=== PATIENT | female | born 1950 | race Caucasian/White ===

== ENCOUNTER → 2020-03-31 | Outpatient (CLI) | payer MEDICARE ==
--- NOTE | 2020-04-02 08:53 | RAD ---
DATE: 03/31/2020 9:01 AM EXAM: MAMMO MATTHEW SCREENING BILATERAL HISTORY: 03/25/2019, 03/19/2018 COMPARISON: Bilateral CC and MLO views of the breasts were performed. Bilateral breast tomosynthesis was performed in CC and MLO projections. This study was interpreted with the benefit of Computerized Aided Detection (CAD). FINDINGS: Breast Density: SCATTERED The breast parenchyma shows scattered fibroglandular densities. Breast parenchyma level B No suspicious masses, microcalcifications or architectural distortion is present to suggest malignancy in either breast. The visualized axillae are unremarkable. IMPRESSION: No mammographic evidence of malignancy. BI-RADS CATEGORY: 1 NEGATIVE RECOMMENDED FOLLOW-UP: 12M 12 MONTH FOLLOW-UP Annual screening mammography is recommended, unless clinically indicated sooner based on symptoms or change in physical exam. PQRS compliance statement: Patient information was entered into a reminder system with a target due date for the next mammogram. Mammography is a sensitive method for finding small breast cancers, but it does not detect them all and is not a substitute for careful clinical examination. A negative mammogram does not negate a clinically suspicious finding and should not result in delay in biopsying a clinically suspicious abnormality. "Our facility is accredited by the [employer] Mammography Program."
== END ==
LOC: MAMMO 08:39
PROVIDERS: ATTEND Family Medicine
DX: Z12.31 Encounter for screening mammogram for malignant neoplasm of breast (principal)
CPT/HCPCS: 77063; 77067

== ENCOUNTER → 2020-11-12 | Outpatient (CLI) | payer MEDICARE ==
--- NOTE | 2020-11-12 11:13 | RAD ---
EXAM: Neck sonogram. HISTORY: Thyroid cancer. Thyroidectomy. TECHNIQUE: Sonographic imaging of the neck was performed. COMPARISON: None. FINDINGS: No residual thyroid parenchyma is seen. There is no lesion within the thyroid resection bed . There is a lymph node with thickened cortex and absent fatty hilum within the left cervical chain m easuring 6.5 mm in maximum dimension. This is nonspecific and may be reactive in etiology. No additio nal lymph node with suspicious morphology is seen. IMPRESSION: 1. Thyroidectomy. No residual thyroid parenchymal lesion is seen within the thyroid resection bed. 2. 6.5 mm lymph node with thickened cortex and absent fatty hilum within the left cervical chain. Thi s is nonspecific and may be reactive in etiology. Given a history of thyroid cancer, short-term sonog raphic follow-up confirm stability can be performed if clinically indicated. Electronically signed by: Paula Noonan MD (11/12/2020 11:11 AM) [id number]
== END ==
LOC: US 10:26
PROVIDERS: ATTEND Internal Medicine Endocrinology, Diabetes & Metabolism
DX: Z85.850 Personal history of malignant neoplasm of thyroid (principal)
CPT/HCPCS: 76536

== ENCOUNTER → 2020-11-16 | Outpatient (CLI) | payer MEDICARE ==
--- NOTE | 2020-11-16 11:23 | RAD ---
EXAM: Lower extremity arterial Doppler sonogram with ankle-brachial indices (DONI). HISTORY: Cramps. Peripheral vascular disease. TECHNIQUE: Doppler sonographic evaluation of the lower extremities was performed and pressure reading s were assessed. FINDINGS: Right brachial pressure: 134 mmHg Left brachial pressure: 124 mmHg Right ankle pressure (dorsalis pedis): 134 mmHg Right ankle pressure (posterior tibial): 134 mmHg Right DONI: 1.0 Left ankle pressure (dorsalis pedis): 133 mmHg Left ankle pressure (posterior tibial): 137 mmHg Left DONI: 1.0 IMPRESSION: Normal bilateral ankle-brachial indices. Electronically signed by: Paula Noonan MD (11/16/2020 11:21 AM) [facility]
== END ==
LOC: US 09:57
PROVIDERS: ATTEND Family Medicine
DX: R25.2 Cramp and spasm (principal); I73.9 Peripheral vascular disease, unspecified
CPT/HCPCS: 93923

== ENCOUNTER → 2021-02-23 | Outpatient (CLI) | payer MEDICARE ==
--- NOTE | 2021-02-23 15:32 | RAD ---
EXAM: US HEAD/NECK SOFT TISSUE. HISTORY: History of thyroid cancer status post thyroidectomy. COMPARISON: 11/12/2020. FINDINGS: Sonographic evaluation of the thyroidectomy bed was performed. No recurrent mass or thyroid tissue is seen within the thyroidectomy bed. A left lymph node with a minimal fatty hilus measures 10 x 7 x 5 mm. This measures increased from 7 x 6 mm, though this may be from different plane of section. There are no suspicious nodes on the right . IMPRESSION: 1. No evidence of recurrence in the thyroidectomy bed. 2. A prominent left neck lymph node measures increased in size, though this may be from different abel alex of section. Correlate with thyroglobulin levels. This lymph node could be sampled under ultrasoun d guidance if there is persistent concern. Electronically signed by: Anaid Matt MD (02/23/2021 3:30 PM) [id number]
== END ==
LOC: US 10:53
PROVIDERS: ATTEND Internal Medicine Endocrinology, Diabetes & Metabolism
DX: R59.0 Localized enlarged lymph nodes (principal); Z85.850 Personal history of malignant neoplasm of thyroid
CPT/HCPCS: 76536

== ENCOUNTER → 2021-04-06 | Outpatient (CLI) | payer MEDICARE ==
--- NOTE | 2021-04-06 12:08 | RAD ---
BILATERAL DIGITAL SCREENING 2-D AND 3-D MAMMOGRAM INDICATION: Routine screening. COMPARISON: October 2020, March 25, 2019, March 19, 2019 and March 16, 2017. Interpretation was made using CAD. FINDINGS: Breast Density: There are scattered areas of fibroglandular density. RIGHT BREAST: No suspicious masses, calcifications or areas of architectural distortion are seen. LEFT BREAST: No suspicious masses, calcifications or areas of architectural distortion are seen. IMPRESSION: 1. No imaging evidence of malignancy. ASSESSMENT: BI-RADS 1. Negative. RECOMMENDATION: Routine annual screening mammogram. The facility will notify the patient of the results via mail. Patient information will be entered int o the mammography reminder system with a target recall date for the next mammogram. A reminder letter will be generated by the facility. Electronically signed by: Lita Falcon MD (04/06/2021 12:05 PM) [id number]
== END ==
LOC: MAMMO 09:34
PROVIDERS: ATTEND Family Medicine
DX: Z12.31 Encounter for screening mammogram for malignant neoplasm of breast (principal)
CPT/HCPCS: 77063; 77067